=== PATIENT | female | born 1995 | race Caucasian/White ===

== ENCOUNTER 2017-03-04 18:11 | Emergency (ER) | payer OTHER ==
[2017-03-04 18:38] VITALS: BP 120/73
--- NOTE | 2017-03-04 19:20 | UC ---
Shoulder Pain HPI - HPI Summary HPI Summary: patient has been treated in the past for left shoulder pain and has been doing PT for a few months. She is from [place], is not able to tell me what she was treated for, she did have an MRI but does not know what was found on the scan. reports general shoulder pain and weakness. is hoping to continue treatment here for shoulder pain. denies any injury or trauma to the shoulder, feels like it clicks and is painful. also states she sqwuated 2 days ago and is having knee pain - History of Current Complaint Chief Complaint: UCUpperExtremity Stated Complaint: LEFT SHOULDER PAIN Time Seen by Provider: 03/04/17 18:32 Hx Obtained From: Patient Hx Last Menstrual Period: 02/28/17 ?: No Onset/Duration: Sudden Onset, Still Present Timing: Constant Severity Initially: Moderate Severity Currently: Moderate Character: Dull, Aching Aggravating Factor(s): Movement Associated Signs And Symptoms: Positive: Negative - Allergies/Home Medications Allergies/Adverse Reactions: Allergies Allergy/AdvReac Type Severity Reaction Status Date / Time No Known Allergies Allergy Verified 03/04/17 18:40 Home Medications: Home Medications Ibuprofen [Ibuprofen 200 MG] 400 mg PO PRN 03/04/17 [History] PMH/Surg Hx/FS Hx/Imm Hx Previously Healthy: Yes - Surgical History Surgical History: Yes Surgery Procedure, Year, and Place: L knee - Family History Known Family History: Positive: Hypertension - Social History Occupation: Student Alcohol Use: Weekly Substance Use Type: None Smoking Status (MU): Never Smoked Tobacco Review of Systems Constitutional: Negative Skin: Negative Eyes: Negative ENT: Negative Respiratory: Negative Cardiovascular: Negative Gastrointestinal: Negative Genitourinary: Negative Motor: Negative Neurovascular: Negative Musculoskeletal: Arthralgia, Myalgia - of left knee Neurological: Negative Psychological: Negative Is Patient Immunocompromised?: No All Other Systems Reviewed And Are Negative: Yes Physical Exam Triage Information Reviewed: Yes Appearance: Well-Appearing, Well-Nourished, Pain Distress Vital Signs: Initial Vital Signs Temp 99 F 03/04/17 18:26 Pulse 68 03/04/17 18:26 Resp 14 03/04/17 18:26 BP 120/73 03/04/17 18:26 Pulse Ox 98 03/04/17 18:26 Vital Signs Reviewed: Yes Eye Exam: Normal ENT Exam: Normal Dental Exam: Normal Neck exam: Normal Respiratory Exam: Normal Cardiovascular Exam: Normal Abdominal Exam: Normal Bowel Sounds: Positive: Present Musculoskeletal: Positive: Strength Intact, ROM Intact, No Edema - in shoulder or knee, Edema @, Other: - neg mcmurrays, ant drawer, valgus and varus stress Neurological Exam: Normal Psychological Exam: Normal Skin Exam: Normal Shoulder Course/Dx - Course Course Of Treatment: hx obtained, exam performed ,meds reviewed, educated on pain relief and PT referral given for shoulder strengthening - Differential Dx/Diagnosis Differential Diagnosis/HQI/PQRI: Bursitis, Contusion, Dislocation, Sprain, Strain, Tendonitis Provider Diagnoses: left shoulder pain. right knee pain Discharge - Discharge Plan Condition: Stable Disposition: HOME Patient Education Materials: Shoulder Pain (ED) Referrals: Ben Del Rio [Physical Therapist] - Additional Instructions: 1. take Motrin as neede for pain 2. use the spencer wrap for the knee, stay in pain free activities 3. Follow up with PT, i have given a referral to an ortho if needed, I would recommend getting previous records and MRI results to be able to proceed with care.
== END 2017-03-04 19:32 | disposition home or self-care (01) ==
LOC: UCCORT 18:11
DX: M25.512 Pain in left shoulder (principal); M25.561 Pain in right knee
CPT/HCPCS: 99201; G0463

== ENCOUNTER 2017-03-19 13:50 | Emergency (ER) | payer OTHER ==
[2017-03-19 13:59] VITALS: BP 117/69
--- NOTE | 2017-03-19 14:29 | UC ---
Head Injury HPI - HPI Summary HPI Summary: HEAD INJURY X 3 DAYS AGO COLLIDED WITH ANOTHER WEB FEEDER, NO LOC, NO MEMORY LOSS, + HEADACHES, DIZZINESS , NAUSEA , NO VOMITING + PHOTOPHOBIA , NO CHANGE IN VISION - History Of Current Complaint Chief Complaint: UCHeadInjury Stated Complaint: HEAD INJURY Time Seen by Provider: 03/19/17 14:09 Hx Obtained From: Patient Hx Last Menstrual Period: 03/11/17 ?: No Onset/Duration: Sudden Onset, Lasting Days - 3, Still Present Severity Currently: Moderate Severity Initially: Moderate Pain Intensity: 8 Pain Scale Used: 0-10 Numeric Character: Dull Aggravating Factor(s): Other - MOVEMENT Alleviating Factor(s): Nothing Associated Signs And Symptoms: Positive: Neck Pain, Nausea. Negative: LOC ( Time In Secs./Mins/Hrs), LOC Duration Unknown, Confusion, Memory Loss, Seizure, Epistaxis, Dental Malocclusion, Vomiting Related History: Similar Episode/Dx as - CONCUSSION - Allergies/Home Medications Allergies/Adverse Reactions: Allergies Allergy/AdvReac Type Severity Reaction Status Date / Time No Known Allergies Allergy Verified 03/19/17 13:59 PMH/Surg Hx/FS Hx/Imm Hx Previously Healthy: Yes - Surgical History Surgical History: Yes Surgery Procedure, Year, and Place: L knee - Family History Known Family History: Positive: Hypertension - Social History Alcohol Use: Occasionally Substance Use Type: None Smoking Status (MU): Never Smoked Tobacco - Immunization History Most Recent Influenza Vaccination: no Review of Systems Constitutional: Negative Skin: Negative Eyes: Blurred Vision ENT: Negative Respiratory: Negative Cardiovascular: Negative Gastrointestinal: Negative Genitourinary: Negative Motor: Negative Musculoskeletal: Negative Neurological: Headache Is Patient Immunocompromised?: No All Other Systems Reviewed And Are Negative: Yes Physical Exam Triage Information Reviewed: Yes Appearance: Well-Appearing, No Pain Distress, Well-Nourished Vital Signs: Initial Vital Signs Temp 98.5 F 03/19/17 13:55 Pulse 70 03/19/17 13:55 Resp 14 03/19/17 13:55 BP 117/69 03/19/17 13:55 Pulse Ox 100 03/19/17 13:55 Vital Signs Reviewed: Yes Eyes: Positive: Conjunctiva Clear ENT: Positive: Normal ENT inspection, Hearing grossly normal, Pharynx normal, Nasal congestion, TMs normal Neck exam: Normal Neck: Positive: Supple, Nontender, No Lymphadenopathy Respiratory: Positive: Chest non-tender, Lungs clear, Normal breath sounds Cardiovascular: Positive: RRR, No Murmur, Pulses Normal Abdominal Exam: Normal Abdomen Description: Positive: Nontender, Soft Bowel Sounds: Positive: Present Musculoskeletal: Positive: Strength Intact, ROM Intact, No Edema Neurological Exam: Normal Neurological: Positive: Alert, Muscle Tone Normal Skin Exam: Normal UC Physical Exam Vital Signs On Initial Exam: Initial Vitals Temp Pulse Resp BP Pulse Ox 98.5 F 70 14 117/69 100 03/19/17 13:55 03/19/17 13:55 03/19/17 13:55 03/19/17 13:55 03/19/17 13:55 - Neuro/Tendon Exam Neuro/Tendon: normal sensation, normal motor functions, normal tendon functions Head Injury Course/Dx - Differential Dx/Diagnosis Provider Diagnoses: CONCUSSION Discharge - Discharge Plan Condition: Stable Disposition: HOME Patient Education Materials: Concussion (ED) Referrals: Non Staff,Doctor [Primary Care Provider] - 7 Days Additional Instructions: FOLLOW UP IN 7 DAYS FOR RECHECK NO SPORTS UNTIL FREE OF SYMPTOMS
== END 2017-03-19 14:19 | disposition home or self-care (01) ==
LOC: UCCORT 13:50
DX: S06.0X0A Concussion without loss of consciousness, initial encounter (principal); W51.XXXA Accidental striking against or bumped into by another person, initial encounter; Y93.66 Activity, soccer; Y92.322 Soccer field as the place of occurrence of the external cause
CPT/HCPCS: 99211; G0463

== ENCOUNTER 2017-03-26 18:14 | Emergency (ER) | payer OTHER ==
[2017-03-26 18:48] VITALS: BP 120/65
--- NOTE | 2017-03-26 19:15 | UC ---
Head Injury HPI - HPI Summary HPI Summary: pt.was seen one week a go with the dx of concussion due to soccer injury has been out of sports for the past one week and has been symptoms free for the past one week no headaches, no n/v , no photophobia - History Of Current Complaint Chief Complaint: UCHeadInjury Stated Complaint: F/U CONCUSSION Time Seen by Provider: 03/26/17 18:49 Hx Obtained From: Patient Hx Last Menstrual Period: 03/08/17 Onset/Duration: Sudden Onset, Lasting Weeks - 1, Still Present Severity Currently: Moderate Severity Initially: Mild Pain Intensity: 1 Pain Scale Used: 0-10 Numeric Character: Other - no sx Aggravating Factor(s): Nothing Alleviating Factor(s): Nothing Associated Signs And Symptoms: Positive: Negative - Allergies/Home Medications Allergies/Adverse Reactions: Allergies Allergy/AdvReac Type Severity Reaction Status Date / Time No Known Allergies Allergy Verified 03/26/17 18:48 PMH/Surg Hx/FS Hx/Imm Hx Previously Healthy: Yes - Surgical History Surgical History: Yes Surgery Procedure, Year, and Place: L knee - Family History Known Family History: Positive: Hypertension - Social History Alcohol Use: Occasionally Substance Use Type: None Smoking Status (MU): Never Smoked Tobacco - Immunization History Most Recent Influenza Vaccination: no Review of Systems Constitutional: Negative Skin: Negative Eyes: Negative ENT: Negative Respiratory: Negative Cardiovascular: Negative Gastrointestinal: Negative Genitourinary: Negative Motor: Negative Neurovascular: Negative Musculoskeletal: Negative Neurological: Negative Psychological: Negative Is Patient Immunocompromised?: No All Other Systems Reviewed And Are Negative: Yes Physical Exam Triage Information Reviewed: Yes Appearance: Well-Appearing, No Pain Distress, Well-Nourished Vital Signs: Initial Vital Signs Temp 98.5 F 03/26/17 18:45 Pulse 71 03/26/17 18:45 Resp 16 03/26/17 18:45 BP 120/65 03/26/17 18:45 Pulse Ox 100 03/26/17 18:45 Vital Signs Reviewed: Yes Eyes: Positive: Conjunctiva Clear ENT Exam: Normal ENT: Positive: Normal ENT inspection, Hearing grossly normal, Pharynx normal Neck exam: Normal Neck: Positive: Supple, Nontender, No Lymphadenopathy Respiratory: Positive: Chest non-tender, Lungs clear, Normal breath sounds Cardiovascular: Positive: RRR, No Murmur, Pulses Normal Abdominal Exam: Normal Abdomen Description: Positive: Nontender, Soft Bowel Sounds: Positive: Present Musculoskeletal: Positive: Strength Intact, ROM Intact, No Edema Neurological: Positive: Alert, Muscle Tone Normal Skin Exam: Normal UC Physical Exam Vital Signs On Initial Exam: Initial Vitals Temp Pulse Resp BP Pulse Ox 98.5 F 71 16 120/65 100 03/26/17 18:45 03/26/17 18:45 03/26/17 18:45 03/26/17 18:45 03/26/17 18:45 - Neurological Exam Neurological: Normal, Sensory/Motor Intact, Alert, Oriented to Person Place, Time, CN Intact II-III, Reflexes Intact, Normal Gait, Speech Normal - Neuro/Tendon Exam Neuro/Tendon: normal sensation Head Injury Course/Dx - Course Course Of Treatment: asymptomatic. may return back to contact sports - Differential Dx/Diagnosis Provider Diagnoses: concussion Discharge - Discharge Plan Condition: Stable Disposition: HOME Patient Education Materials: Concussion (ED) Forms: *Physical Education Release Referrals: Non Staff,Doctor [Primary Care Provider] - If Needed
== END 2017-03-26 19:08 | disposition home or self-care (01) ==
LOC: UCCORT 18:14
DX: S06.0X9A Concussion with loss of consciousness of unspecified duration, initial encounter (principal); W19.XXXA Unspecified fall, initial encounter
CPT/HCPCS: 99211; G0463

== ENCOUNTER 2017-08-02 17:09 | Emergency (ER) | payer OTHER ==
[2017-08-02 18:08] VITALS: BP 113/75
--- NOTE | 2017-08-02 19:07 | UC ---
UC Dental HPI - HPI Summary HPI Summary: 22 yo female cracked a left upper molar months ago intermittent pain initially now constant pain days no DM no heart murmur - History of Current Complaint Chief Complaint: UCDentalProblem Stated Complaint: LEFT SIDE FACE PAIN Time Seen by Provider: 08/02/17 18:56 Hx Obtained From: Patient Hx Last Menstrual Period: ~07/12/17 Onset/Duration: Gradual Onset, Lasting Weeks Severity: Moderate Pain Intensity: 6 Pain Scale Used: 0-10 Numeric Aggravating Factor(s): Heat, Cold, Chewing Alleviating Factor(s): OTC Meds Related History: Discharge, Swelling - Allergies/Home Medications Allergies/Adverse Reactions: Allergies Allergy/AdvReac Type Severity Reaction Status Date / Time No Known Allergies Allergy Verified 08/02/17 18:04 Home Medications: Home Medications Dextroamphetamine/Amphetamine [Dextroamp-Amphetamin 20 mg Tab] 20 mg PO SEE INSTRUCTIONS 08/02/17 [History Confirmed 08/02/17] Ibuprofen TAB* [Advil TAB*] 800 mg PO Q8HR PRN 08/02/17 [History Confirmed 08/02] PMH/Surg Hx/FS Hx/Imm Hx Previously Healthy: Yes - Surgical History Surgical History: Yes Surgery Procedure, Year, and Place: Left Knee Arthroscopy, 2014, [facility] - Family History Known Family History: Positive: Hypertension - Social History Alcohol Use: Occasionally Substance Use Type: None Smoking Status (MU): Never Smoked Tobacco - Immunization History Most Recent Influenza Vaccination: no Review of Systems Constitutional: Negative Skin: Negative Eyes: Negative ENT: Dental Pain Respiratory: Negative Cardiovascular: Negative Gastrointestinal: Negative Genitourinary: Negative Motor: Negative Neurovascular: Negative Musculoskeletal: Negative Neurological: Negative Psychological: Negative Is Patient Immunocompromised?: No All Other Systems Reviewed And Are Negative: Yes Physical Exam Triage Information Reviewed: Yes Appearance: Well-Appearing, No Pain Distress, Well-Nourished Vital Signs: Initial Vital Signs Temp 98.4 F 08/02/17 18:02 Pulse 88 08/02/17 18:02 Resp 16 08/02/17 18:02 BP 113/75 08/02/17 18:02 Pulse Ox 100 08/02/17 18:02 Vital Signs Reviewed: Yes Eyes: Positive: Conjunctiva Clear ENT: Positive: Hearing grossly normal, Dental tenderness. Negative: Nasal congestion, Nasal drainage, TM red, Tonsillar swelling, Tonsillar exudate, Sinus tenderness, Uvula midline Dental: Positive: Percussion Tenderness @ Neck: Positive: Supple, Nontender, No Lymphadenopathy Respiratory: Positive: Lungs clear, Normal breath sounds, No respiratory distress, No accessory muscle use Cardiovascular: Positive: RRR, No Murmur Musculoskeletal: Positive: ROM Intact, No Edema Neurological: Positive: Alert Psychological Exam: Normal Skin Exam: Normal Dental Complaint Course/Dx - Differential Dx/Diagnosis Provider Diagnoses: acute dentalgia. ?apical abscess Discharge - Discharge Plan Condition: Stable Disposition: HOME Prescriptions: RX: Penicillin VK 500 MG TAB(NF) [Penicillin VK 500 mg Tab] 500 mg PO QID #28 tab Patient Education Materials: Toothache (ED) Referrals: Non Staff,Doctor [Primary Care Provider] - Additional Instructions: advil 3 pills 4x day as needed for pain recheck for worsening symptoms you need to have that tooth addressed by your dentist [facility]: 1 - cracked tooth
== END 2017-08-02 19:14 | disposition home or self-care (01) ==
LOC: UCCORT 17:09
DX: K08.89 Other specified disorders of teeth and supporting structures (principal)
CPT/HCPCS: 99212; G0463

== ENCOUNTER 2018-05-20 08:57 | Emergency (ER) | payer OTHER ==
[2018-05-20 09:30] VITALS: BP 119/82
--- NOTE | 2018-05-20 10:40 | UC ---
General HPI - HPI Summary HPI Summary: [employer] student c/o "a lot of bruising to arms and legs" onset around . denies any acute illness, asa and nsaid use. has also noted episodic blood in urine. the past 3 months, pt has felt a little sob, weak and fatigued plus has had some mm aches that are much worse over the past week. she also noted a 20# weight loss since the summer 10# which was in the past month. pt did go to [facility] plus tried to see her pcp in [place] over breaking but was not able to get in. - History of Current Complaint Chief Complaint: UCGeneralIllness Stated Complaint: FATIGUE/BRUISING ON LEGS/ARMS Time Seen by Provider: 05/20/18 10:28 Hx Obtained From: Patient Hx Last Menstrual Period: 05/15/18 Onset/Duration: Gradual Onset Timing: Constant Pain Intensity: 0 Associated Signs & Symptoms: Negative: Dysuria, Fever, Hemoptysis - Allergy/Home Medications Allergies/Adverse Reactions: Allergies Allergy/AdvReac Type Severity Reaction Status Date / Time No Known Allergies Allergy Verified 05/20/18 09:26 PMH/Surg Hx/FS Hx/Imm Hx Previously Healthy: Yes - Surgical History Surgical History: Yes Surgery Procedure, Year, and Place: Left Knee Arthroscopy, 2014, [facility] - Family History Known Family History: Positive: Hypertension - Social History Occupation: Student Alcohol Use: Occasionally Substance Use Type: None Smoking Status (MU): Never Smoked Tobacco - Immunization History Most Recent Influenza Vaccination: no Vaccination Up to Date: Yes Review of Systems All Other Systems Reviewed And Are Negative: Yes Constitutional: Positive: Fatigue Skin: Positive: Negative Eyes: Positive: Negative ENT: Positive: Negative Respiratory: Positive: Shortness Of Breath Cardiovascular: Positive: Negative Gastrointestinal: Positive: Negative Genitourinary: Positive: Negative Motor: Positive: Weakness Neurovascular: Positive: Negative Musculoskeletal: Positive: Myalgia Neurological: Positive: Negative Psychological: Positive: Negative Is Patient Immunocompromised?: No Physical Exam Triage Information Reviewed: Yes Appearance: Well-Appearing Vital Signs: Initial Vital Signs Temp 97.6 F 05/20/18 09:24 Pulse 80 05/20/18 09:24 Resp 14 05/20/18 09:24 BP 119/82 05/20/18 09:24 Pulse Ox 100 05/20/18 09:24 Vital Signs Reviewed: Yes Eyes: Positive: Conjunctiva Clear ENT: Positive: Pharynx normal, TMs normal. Negative: Nasal congestion, Nasal drainage Neck: Positive: Supple, Nontender, No Lymphadenopathy Respiratory: Positive: Lungs clear, Normal breath sounds Cardiovascular: Positive: RRR, No Murmur Abdomen Description: Positive: Other: - Flat, +BS, soft. Tender RUQ but no mass or HSM appreciated. No inguinal adenoapthy. Musculoskeletal: Positive: ROM Intact, No Edema, Other: - No axillary, epitroclear adenopathy. Neurological: Positive: Alert Psychological: Positive: Age Appropriate Behavior Skin Exam: Normal, Other - Multiples brown bruises notes to BUE's and BLE's. Course/Dx - Course Course Of Treatment: PT DIFFERENTIAL IS BROAD(ITP, CA/LYMPHOMA, LIVER DZ) AND REQUIRES ER EVALUATION. PT AGREES TO GO AND WILL DRIVE HERSELF. DIAGNOSIS: SPONTANEOUS BRUISING, FATIGUE, MYALGIAS, WEIGHT LOSS, RUQ TENDERNESS, CONN. [facility] ER CALLED. REPORT GIVEN TO DR ALMONTE. - Diagnoses Provider Diagnosis: Fatigue Discharge - Sign-Out/Discharge Documenting (check all that apply): Patient Departure All imaging exams completed and their final reports reviewed: No Studies - Discharge Plan Condition: Stable Disposition: TRANS HIGHER LVL OF CARE FAC Referrals: No Primary Care Phys,NOPCP [Primary Care Provider] - Additional Instructions: LEAVE HERE AND GO DIRECTLY TO THE ER DISCUSSED - Billing Disposition and Condition Condition: STABLE Disposition: Trans Higher Lvl of Care Fac
== END 2018-05-20 10:47 | disposition short-term general hospital (02) ==
LOC: UCCORT 08:57
DX: R53.83 Other fatigue (principal)
CPT/HCPCS: 99211; G0463